=== PATIENT | male | born 1960 | race Caucasian/White ===

== ENCOUNTER 2016-07-20 13:34 | Day surgery (SDC) | payer BC ==
--- NOTE | 2016-07-20 14:05 | OR ---
Anesthesia Pre Procedure Eval Date of Service: 07/20/16 Pre Procedure Evaluation: Last Vital Signs Temp 36.7 C 07/20/16 13:54 Pulse 71 07/20/16 13:54 Resp 16 07/20/16 13:54 BP 129/85 07/20/16 13:54 Pulse Ox 98 07/20/16 13:54 DATE: 07/20/2016 TIME: 1405 INDICATIONS: Spinal stenosis, low back and radicular pain PAST MEDICAL HISTORY: Mr. Ruiz has had a long history of back and radicular pain. He has had multiple approaches to treating the pain in the past however the epidural steroid in the past has been his most consistent method of relief. His last epidural injection has been 2014, the procedure and risks were explained and he does understand and accepts the procedure. EXAM: Heart S1-S2 regular; lungs clear bilaterally ASSESSMENT OF MEDICAL STATUS: Appropriate candidate for labor analgesia, he is on no anticoagulants. PLANNED PROCEDURE: Lumbar epidural steroid injection Home Medications: HOME MEDICATIONS Colchicine 0.6 mg PO BID PRN 07/20/16 [Last Taken Unknown] Hydrocodone/Acetaminophen [Lortab 5-325 mg Tablet] 1 each PO QID PRN 07/20/16 [ Last Taken Unknown]
[2016-07-20] MEDS ORDERED: DEXAMETHASONE SOD PHOSPHATE 10 MG/ML VIAL IJ ONE ×2 (14:15→14:20)
[2016-07-20] MEDS ORDERED: LIDOCAINE HCL/PF 5 ML VIAL IJ ONE ×2 (14:15→14:20)
[2016-07-20] MEDS ORDERED: IOPAMIDOL 20 ML VIAL IJ ONE ×2 (14:16→14:19)
--- NOTE | 2016-07-20 14:29 | OR ---
Anesthesia Procedure Note - Anesthesia Procedure Note Date of Service: 07/20/16 Narrative: Vital Signs - Last Taken Temp 36.7 C 07/20/16 13:54 Pulse 71 07/20/16 13:54 Resp 16 07/20/16 13:54 BP 129/85 07/20/16 13:54 Pulse Ox 98 07/20/16 13:54 07/20/16 14:27 ANESTHESIA PROCEDURE NOTE Date of Procedure: 07/20/2016 Time of procedure: 1410. Performed by: Kishor Vera CRNA, GENERAL MATCHER, MSN Dial Screw Assembler: Wanda Grimes. Preprocedure diagnosis: Spinal stenosis, low back and radicular pain. Post procedure diagnosis: Same. Procedure: Epidural Steroid Injection L4 5. Indications: Low back and radicular pain. Findings: See below. Details of the procedure: After the MRI report and films were reviewed, the patient was interviewed where risks and the procedure were explained. The patient was then brought to [facility] and was placed in the prone position. The back was prepped with DuraPrep and draped in a sterile fashion. The lumbar area was identified under fluoroscopy and the L4 5 space was localized with 1% lidocaine solution. The epidural space was identified using loss of resistance technique using a #20-gauge Touhy needle. 3 mL of Isovue was injected while the C-arm was positioned in the lateral orientation. The C-arm was then readjusted to an AP view and Isovue 200 2 milliliters was injected demonstrating a spread at the affected area. Dexamethasone 10mg and lidocaine 1 % 5 mL was injected, stylette was replaced and the epidural needle removed. A Band-Aid was then applied to the injection site, patient was placed in a supine position for 5 minutes then returned to ASU with good relief of pain, from a 4/ 10 to 0/10. EBL: None. Energy: 17 Seconds, 9.32 mGy Fluids: N/A. Specimen: N/A. Post procedure condition: The patient tolerated the procedure well. No complications were noted. Thank you for this consultation. Kishor Vera CRNA, MSN, GENERAL MATCHER
[2016-07-20 14:59] VITALS: BP 150/93
== END 2016-07-20 13:35 | disposition home or self-care (01) ==
LOC: AMB 13:34
PROVIDERS: ATTEND Nurse Practitioner
PROC: 3E0S3BZ Introduction of Anesthetic Agent into Epidural Space, Percutaneous Approach (ICD-10-PCS; 2016-07-20)
PROC: 3E0S33Z Introduction of Anti-inflammatory into Epidural Space, Percutaneous Approach (ICD-10-PCS; principal; 2016-07-20 14:00)
DX: M48.06 Spinal stenosis, lumbar region (principal)

== ENCOUNTER 2016-11-16 09:19 | Emergency (ER) | payer BC ==
--- NOTE | 2016-11-16 09:49 | ERNOTE ---
Lower Extremity HPI - Narrative Date of Service: 11/16/16 - General Lower Extremities Pain: heel: right Time Seen by Provider: 11/16/16 09:41 Source: patient Exam Limitations: no limitations - Immun/Allergies/Home Medications Immunizations: IMMUNIZATION HX Immunizations Up to Date Yes History of Influenza Vaccine No Hx Pneumococcal Vaccination No Allergies/Adverse Reactions: Allergies Allergy/AdvReac Type Severity Reaction Status Date / Time No Known Allergies Allergy Verified 11/16/16 09:33 Home Medications: HOME MEDICATIONS HYDROcodone/ACETAMINOPHEN [Lortab 5-325 mg Tablet] 1 each PO QID PRN #14 tablet 11/16/16 [Last Taken Unknown] - History of Present Illness Narrative: 55-year-old white male presents with heel pain. Patient states he developed right heel pain 3 days ago. The pain is moderate to severe. There is a small amount of swelling and redness on the right posterior heel. No history of injury. No history of prior pain. No systemic signs of illness. No fever chills. No history of gout. He has been using hydrocodone without relief. Review of Systems - Review of Systems Constitutional: Present: no symptoms reported. Absent: fever, chills Respiratory: Present: no symptoms reported Cardiology: Present: no symptoms reported Gastrointestinal/Abdominal: Present: no symptoms reported Musculoskeletal: Present: See HPI, back pain - chronic back pain Neurological: Present: no symptoms reported. Absent: weakness, numbness - Patient's Past Medical History Patient History - Medical: Arthritis, Chronic Pain Patient History - Cardiac/Respiratory: No pertinent hx Patient History - Cancer: No Hx of Cancer Patient History - Surgical Procedures: Other Patient History - Other: None - Social History Living Situations: home Abuse History: No History of abuse Psych History: No pertinent hx Smoking Status: Never smoker Have you smoked in the past 12 months: No Do you dip or chew tobacco: Yes Alcohol Use: none Drug Use: none - Immunizations Immunizations Up to Date: Yes Hx Pneumococcal Vaccination: No History of Influenza Vaccine: No Physical Exam - Physical Exam General Appearance: Present: wd/wn, alert, no apparent distress Head Exam: Present: normal inspection Respiratory: Present: no respiratory distress, normal breath sounds Cardiovascular/Chest: Present: regular rate, rhythm, no murmur Peripheral Pulses: N=norm/S=strong/W=weak/B=bound/A=absent: Dorsalis-pedis (R): Normal, Dorsalis-pedis (L): Normal Extremity Exam: Present: other - the right posterior heel has a small area approximately 2 cm of erythema with some tenderness. The rest of the foot examination is normal. Skin Exam: Present: normal color, warm/dry ED Progress - Vital Signs Patient's Vital Signs:: I have reviewed the patient's vital signs. Vital Signs: Vital Signs 11/16/16 09:30 Temperature 36.8 C Pulse Rate 77 Respiratory 16 Rate Blood Pressure 129/76 O2 Sat by Pulse 98 Oximetry - X-Ray X-Ray #1 X-Ray: calcaneus Interpretation: Reviewed by me - Progress/Reassessment Chief Complaint: Lower Extremity Pain/ Injury Procedures Pre-Proc Neuro Vasc Exam: normal Pre-Made Type: orthopedic boot Splint: orthopedic boot Alignment good: Yes Splint applied by: Nurse Post-Proc Neuro Vasc Exam: normal Plan - Plan Plan: Patient will be given a prescription for a tapering course of steroids. Prednisone 60 mg daily 3 days tapered to 40 mg daily 3 days tapered to 20 monos daily 3 days. Hold nonsteroidals during this time course. Patient denies any recent use of antibiotics or fluoroquinolones. His swelling and tenderness is at the point of the Achilles insertion. Therefore I advised him to be on crutches and nonweightbearing. The risk of Achilles tendon rupture was advised to him. We will also give him an orthopedic boot. He will follow up with podiatry. Patient verbalizes understanding Departure Clinical Impression: Heel pain Qualifiers: Laterality: right Qualified Code(s): M79.671 - Pain in right foot - Departure Disposition: Home self-care Condition: Good Additional Instructions: Heel support cushion. Rest as much as possible. Elevate. Take medications as prescribed. Follow-up with medical representative. Referrals: Barb Reynolds, RELIGION DEPARTMENT CHAIR [Primary Care Provider] - Prescriptions: HYDROcodone/ACETAMINOPHEN [Lortab 5-325 mg Tablet] 1 each PO QID PRN #14 tablet PRN Reason: Pain
[2016-11-16 11:01] VITALS: BP 127/74
== END 2016-11-16 10:50 | disposition home or self-care (01) ==
LOC: ER 09:19
PROC: 2W3SX1Z Immobilization of Right Foot using Splint (ICD-10-PCS; principal; 2016-11-16)
DX: M79.671 Pain in right foot (principal)

== ENCOUNTER 2017-04-09 08:58 | Day surgery (SDC) | payer BC ==
--- NOTE | 2017-04-09 09:26 | OR ---
Anesthesia Pre Procedure Eval Date of Service: 04/09/17 Pre Procedure Evaluation: Last Vital Signs Temp 36.3 C L 04/09/17 09:10 Pulse 70 04/09/17 09:10 Resp 16 04/09/17 09:10 BP 145/86 04/09/17 09:10 Pulse Ox 100 04/09/17 09:10 Anesthesia Pre Procedure Evaluation DATE: 04/09/2017 TIME: 9:25 AM INDICATIONS: Degenerative disc disease, spinal stenosis, low back and left radicular pain. PAST MEDICAL HISTORY: Mr. Ruiz has had a history of low back and radicular pain is been treated with conservative modalities however his best relief has been after epidural injections. He had a lumbar epidural injection 9 months ago which did very well for him up until the beginning of this month which she' s had a gradual onset and continued low back particularly left radicular pain radiating to the big toe. History of GERD: No History of smoking: No History of sleep apnea: No EXAM: Heart S1 and S2 regular; lungs clear bilaterally ASSESSMENT OF MEDICAL STATUS: Primary candidate for epidural injection PLANNED PROCEDURE: Lumbar epidural steroid injection Home Medications: HOME MEDICATIONS Colchicine [Colcrys] 0.6 mg PO BID PRN 04/01/17 [Last Taken Unknown]
--- NOTE | 2017-04-09 10:18 | OR ---
Anesthesia Procedure Note - Anesthesia Procedure Note Date of Service: 04/09/17 Narrative: Vital Signs - Last Taken Temp 36.3 C L 04/09/17 09:10 Pulse 70 04/09/17 09:10 Resp 16 04/09/17 09:10 BP 145/86 04/09/17 09:10 Pulse Ox 100 04/09/17 09:10 04/09/17 10:15 ANESTHESIA PROCEDURE NOTE Date of Procedure: 04/09/2017 Time of procedure: 9:35 AM. Performed by: LAMAR Trevino CRNAP, MSN Trapeze Performer: Fernanda Lance RN. Preprocedure diagnosis: Multilevel disc bulge, spinal stenosis, low back and left radicular pain.. Post procedure diagnosis: Same. Procedure: Epidural Steroid Injection L4 5. Indications: Low back and left radicular pain. Findings: See below. Details of the procedure: After the MRI report and films were reviewed, the patient was interviewed where risks and the procedure were explained. The patient was then brought to [facility] 3 and was placed in the prone position. The back was prepped with DuraPrep and draped in a sterile fashion. The lumbar area was identified under fluoroscopy and the L4 5 left space was localized with 1% lidocaine solution. Multiple passes were attempted under fluoroscopy guidance however the epidural space could not be obtained even when it appeared that the needle was in an area clear of any obstruction. As such the L4 5 right side was localized with 1% lidocaine solution. The epidural space was identified using loss of resistance technique using a #20-gauge Touhy needle. 1 mL of Isovue was injected while the C-arm was positioned in the lateral orientation. The C-arm was then readjusted to an AP view and Isovue 200 1 milliliters was injected demonstrating a spread at the affected area. Dexamethasone 10mg and lidocaine 1% 5 mL was injected, stylette was replaced and the epidural needle removed. A Band-Aid was then applied to the injection site, patient was placed in a supine position for 5 minutes then returned to ASU with good relief of pain, from a 4/10 to 0/10. EBL: None. Energy: 20 Seconds, 8.2 mGy Fluids: N/A. Specimen: N/A. Post procedure condition: The patient tolerated the procedure well. No complications were noted. Thank you for this consultation. Kishor Vera CRNA, MSN, PRACTICAL NURSE CLINICAL COORDINATOR
[2017-04-09] MEDS ORDERED: IOPAMIDOL 20 ML VIAL IJ ONE (10:20)
[2017-04-09] MEDS ORDERED: DEXAMETHASONE SOD PHOSPHATE 10 MG/ML VIAL IJ ONE (10:20)
[2017-04-09] MEDS ORDERED: LIDOCAINE HCL/PF 5 ML VIAL IJ ONE (10:20)
[2017-04-09 10:45] VITALS: BP 138/82
== END 2017-04-09 08:59 | disposition home or self-care (01) ==
LOC: AMB 08:58
PROVIDERS: ATTEND Nurse Practitioner
PROC: 3E0R33Z Introduction of Anti-inflammatory into Spinal Canal, Percutaneous Approach (ICD-10-PCS; 2017-04-09)
PROC: B01BZZZ Fluoroscopy of Spinal Cord (ICD-10-PCS; 2017-04-09)
PROC: 3E0R3BZ Introduction of Anesthetic Agent into Spinal Canal, Percutaneous Approach (ICD-10-PCS; principal; 2017-04-09 09:30)
DX: M51.26 Other intervertebral disc displacement, lumbar region (principal); M48.061 Spinal stenosis, lumbar region without neurogenic claudication; Z68.33 Body mass index [BMI] 33.0-33.9, adult